=== PATIENT | female | born 1970 | race Two or more races ===

== ENCOUNTER → 2016-07-15 | Outpatient (CLI) | payer OTHER ==
[2016-07-15 08:41] LABS: ABSOLUTE EOSINOPHILS # (AUTO) 0.2 10^3/uL (0.0-0.6); ABSOLUTE LYMPHOCYTES (AUTO) 2.7 10^3/uL (0.5-4.7); ABSOLUTE MONOCYTES (AUTO) 0.7 10^3/uL (0.1-1.4); ABSOLUTE NEUT (AUTO) 4.8 10^3/uL (1.7-8.2); BASOPHILS % (AUTO) 0.4 % (0-2); EOSINOPHILS % (AUTO) 2.8 % (0-6); HEMATOCRIT 35.2 % (36.0-47.0); HEMOGLOBIN 11.1 g/dL (12.0-15.5); HGB HCT DIFFERENCE -1.9; LYMPHOCYTES % (AUTO) 31.8 % (13-45); MEAN CORPUSCULAR HEMOGLOBIN 23.4 pg (27.0-33.4); MEAN CORPUSCULAR HGB CONC 31.4 g/dL (32.0-36.0); MEAN CORPUSCULAR VOLUME 75 fl (80-97); MONOCYTES % (AUTO) 8.7 % (3-13); RED BLOOD COUNT 4.73 10^6/uL (3.72-5.28); RED CELL DISTRIBUTION WIDTH 16.9 % (11.5-14.0); SEGMENTED NEUTROPHILS % (AUTO) 56.3 % (42-78); WHITE BLOOD COUNT 8.6 10^3/uL (4.0-10.5)
== END ==
LOC: CCC 07:19
DX: E03.9 Hypothyroidism, unspecified (principal); R19.00 Intra-abdominal and pelvic swelling, mass and lump, unspecified site
CPT/HCPCS: 36415; 84443; 85025

== ENCOUNTER → 2016-08-15 | Outpatient (CLI) | payer OTHER ==
[2016-08-15 09:05] LABS: FERRITIN 7.14 ng/mL (6.2-137.0)
== END ==
LOC: OD 07:09
DX: E03.9 Hypothyroidism, unspecified (principal)
CPT/HCPCS: 36415; 82728; 83540; 83550; 84443

== ENCOUNTER → 2016-11-01 | Outpatient (CLI) | payer OTHER | LOC: OD 08:42 | DX: E03.9 Hypothyroidism, unspecified (principal) | CPT/HCPCS: 36415; 84443 ==

== ENCOUNTER → 2016-11-19 | Outpatient (CLI) | payer SELFPAY ==
--- NOTE | 2016-11-26 15:21 | RADIOLOGY REPORT (SQ) ---
EXAM DESCRIPTION: UPPER GI/SM BOWEL COMPLETED DATE/TIME: 11/19/2016 11:27 am REASON FOR STUDY: ANEMIA D64.9 ANEMIA, UNSPECIFIED COMPARISON: None. TECHNIQUE: Under fluoroscopic guidance, patient ingested effervescent granules followed by thick an d thin barium. Fluoroscopic spot images and routine radiographic images acquired and stored on PACS . Following evaluation of esophagus and stomach, additional barium administered with serial delayed ab dominal radiographs until colonic identification. Fluoroscopic images recorded of the terminal ileu m. 12 MM BARIUM TABLET GIVEN: The patient swallowed a 12 mm barium tablet which passed easily through th e esophagus and into the stomach without delay. FLUOROSCOPY TIME: Fluoro time 2.2 minutes 13 images saved to PACS. LIMITATIONS: None. FINDINGS: NEUROMUSCULAR COORDINATION OF SWALLOW: Normal. No aspiration. ESOPHAGEAL MOTILITY: Normal peristalsis. No esophageal spasm. ESOPHAGEAL MUCOSA: Normal mucosa without masses or ulceration. GASTRO-ESOPHAGEAL JUNCTION: There is a tiny hiatal hernia present. No reflux noted. STOMACH: Normal without masses or ulcerations. GASTRIC OUTLET: No delay in emptying. Normal pylorus. DUODENAL BULB: Normal distention. No spasm or ulceration. DUODENUM: Mucosa normal. No extrinsic masses or malrotation. PROXIMAL SMALL BOWEL: Normal as visualized. JEJUNUM: Normal mucosal pattern. No dilatation, segmentation, strictures or masses. ILEUM: Normal mucosal pattern. No dilatation, segmentation, strictures or masses. TERMINAL ILEUM AND ILEO-CECAL VALVE: Normal mucosal pattern without cobble-stoning or stricture. Nor mal compression. PROXIMAL COLON: Incompletely imaged. No abnormality. NON-GI TRACT STRUCTURES: No significant finding. OTHER: Small bowel transit time 90 minutes. IMPRESSION: TINY HIATAL HERNIA. OTHERWISE UNREMARKABLE STUDY. COMMENT: NONE Quality ID [id number]: Final reports for procedures using fluoroscopy that document radiation exposure sarthak allysas, or exposure time and number of fluorographic images (if radiation exposure indices are not avail able) TECHNICAL DOCUMENTATION: JOB ID: [id number] [employer]- All Rights Reserved
== END ==
LOC: RAD 09:14
PROVIDERS: ATTEND Internal Medicine
DX: D50.9 Iron deficiency anemia, unspecified (principal)
CPT/HCPCS: 74249

== ENCOUNTER 2016-12-25 03:20 | Emergency (ER) | payer OTHER ==
--- NOTE | 2016-12-25 04:05 | ER Document Report ---
ED General - General Chief Complaint: Swelling Stated Complaint: BLOOD PRESSURE PROBLEMS Time Seen by Provider: 12/25/16 04:03 Mode of Arrival: Ambulatory Information source: Patient Notes: Pt presents to the ED with c/o fatigue, chills, swelling to her legs and face and unable to sleep. Pt does not speak afghan. Interpretation done by Judy NANCE and Laz NANCE. She reports occasional abdominal pain. She is waiting for the [facility] to set her up for a EGD. Denies f/v/d. Reports symptoms for a few months but unable to sleep tonight. TRAVEL OUTSIDE OF THE [place] IN LAST 30 DAYS: No - HPI Onset: Other - 2MONTHS Onset/Duration: Persistent Quality of pain: No pain Severity: None Associated symptoms: None Exacerbated by: Denies Relieved by: Denies Similar symptoms previously: Yes Recently seen / treated by doctor: No - Related Data Allergies/Adverse Reactions: No Known Allergies Allergy (Unverified 12/25/16 03:36) Past Medical History - General Information source: Patient Last Menstrual Period: 4 months ago - Social History Smoking Status: Unknown if Ever Smoked Cigarette use (# per day): No Frequency of alcohol use: None Drug Abuse: None Lives with: Family Family History: None Patient has suicidal ideation: No Patient has homicidal ideation: No - Medical History Medical History: Other - anemia - Past Medical History Cardiac Medical History: Reports: Hx Hypertension Endocrine Medical History: Reports: Hx Hypothyroidism Renal/ Medical History: Denies: Hx Peritoneal Dialysis Surgical Hx: Negative Review of Systems - Review of Systems Notes: Review HPI for review of systems., All other systems negative Physical Exam - Vital signs Vitals: Temp Pulse Resp BP Pulse Ox 97.9 F 78 18 151/77 H 99 12/25/16 03:32 12/25/16 03:32 12/25/16 03:32 12/25/16 03:32 12/25/16 03:32 - Notes Notes: PHYSICAL EXAMINATION: GENERAL: Well-appearing and in no acute distress HEAD: Atraumatic, normocephalic. EYES: Pupils equal round and reactive to light, extraocular movements intact, sclera anicteric, conjunctiva are normal. ENT: nares patent, oropharynx clear without exudates. Moist mucous membranes. NECK: Normal range of motion, supple without lymphadenopathy LUNGS: CTAB and equal. No wheezes rales or rhonchi. HEART: Regular rate and rhythm without murmurs ABDOMEN: Soft, no tenderness. No guarding, no rebound denies pain EXTREMITIES: Normal range of motion, no pitting edema. No cyanosis. NEUROLOGICAL: Cranial nerves grossly intact. Normal sensory/motor exams. PSYCH: Normal mood, normal affect. SKIN: Warm, Dry, normal turgor, no rashes or lesions noted Course - Re-evaluation Re-evalutation: 12/25/16 05:18 pt instructed we will obtain baseline labs to ensure she is safe. Pt is nontoxic looking. Vital signs of stable. 12/25/16 05:42 Labs Unremarkable and updated on all labs. Patient reports that she has an appointment with her primary care provider on Friday. She also has someone that can read afghan for her discharge instructions. Interpretation completed thru Laz NANCE. - Vital Signs Vital signs: Temp Pulse Resp BP Pulse Ox 97.9 F 78 18 151/77 H 99 12/25/16 03:32 12/25/16 03:32 12/25/16 03:32 12/25/16 03:32 12/25/16 03:32 - Laboratory Result Diagrams: 12/25/16 04:35 12/25/16 04:35 Laboratory results interpreted by me: 12/25/16 12/25/16 04:35 04:35 MCH 26.2 L RDW 18.6 H Potassium 3.4 L Glucose 146 H AST 46 H ALT 67 H Total Protein 8.3 H Discharge - Discharge Clinical Impression: Fatigue, Elevated blood pressure reading Condition: Stable Disposition: HOME, SELF-CARE Instructions: [facility], Fatigue ([facility]) Additional Instructions: *You have been evaluated for fatigue, swelling, joint pain *Follow up with a primary care provider or the [facility] within one week *Return to ED for worsening condition, changes, needs Monitor your blood pressure. Your blood pressure was elevated today. This may be because you were anxious, in pain or because you need medication. It is important to follow up with your primary care provider for full evaluation. Forms: Elevated Blood Pressure
[2016-12-25 04:55] LABS: ABSOLUTE BASOPHILS # (AUTO) 0.1 10^3/uL (0.0-0.2); ABSOLUTE EOSINOPHILS # (AUTO) 0.2 10^3/uL (0.0-0.6); ABSOLUTE MONOCYTES (AUTO) 0.6 10^3/uL (0.1-1.4); ABSOLUTE NEUT (AUTO) 5.3 10^3/uL (1.7-8.2); BASOPHILS % (AUTO) 0.6 % (0-2); EOSINOPHILS % (AUTO) 2.6 % (0-6); HEMATOCRIT 40.8 % (36.0-47.0); HEMOGLOBIN 13.4 g/dL (12.0-15.5); HGB HCT DIFFERENCE -0.6; LYMPHOCYTES % (AUTO) 32.6 % (13-45); MEAN CORPUSCULAR HEMOGLOBIN 26.2 pg (27.0-33.4); MEAN CORPUSCULAR HGB CONC 32.9 g/dL (32.0-36.0); MEAN CORPUSCULAR VOLUME 80 fl (80-97); MONOCYTES % (AUTO) 6.3 % (3-13); RED BLOOD COUNT 5.13 10^6/uL (3.72-5.28); RED CELL DISTRIBUTION WIDTH 18.6 % (11.5-14.0); SEGMENTED NEUTROPHILS % (AUTO) 57.9 % (42-78); WHITE BLOOD COUNT 9.2 10^3/uL (4.0-10.5)
[2016-12-25 05:04] LABS: APPEARANCE,URINE CLEAR; BILIRUBIN,URINE NEGATIVE (NEGATIVE); GLUCOSE, URINE NEGATIVE (NEGATIVE); KETONES,URINE NEGATIVE (NEGATIVE); LEUKOCYTE ESTERASE,URINE NEGATIVE (NEGATIVE); NITRITE,URINE NEGATIVE (NEGATIVE); PROTEIN,URINE NEGATIVE (NEGATIVE); URINE SPECIFIC GRAVITY 1.011; UROBILINOGEN,URINE NEGATIVE mg/dL (<2.0)
[2016-12-25 05:16] LABS: ALANINE AMINOTRANSFERASE 67 U/L (9-52); ALBUMIN 4.3 g/dL (3.5-5.0); ALKALINE PHOSPHATASE 94 U/L (38-126); ANION GAP 14 (5-19); ASPARTATE AMINO TRANSFERASE 46 U/L (14-36); BILIRUBIN,DIRECT 0.4 mg/dL (0.0-0.4); BILIRUBIN,TOTAL 0.5 mg/dL (0.2-1.3); BLOOD UREA NITROGEN 14 mg/dL (7-20); CALCIUM 9.9 mg/dL (8.4-10.2); CARBON DIOXIDE 28 mmol/L (22-30); CHLORIDE 100 mmol/L (98-107); CREATININE RESULT 0.57 mg/dL (0.52-1.25); GLUCOSE 146 mg/dL (75-110); LIPASE 102.7 U/L (23-300); POTASSIUM 3.4 mmol/L (3.6-5.0); SODIUM 142.4 mmol/L (137-145); TOTAL PROTEIN 8.3 g/dL (6.3-8.2)
[2016-12-25 06:02] VITALS: BP 148/80
== END 2016-12-25 06:02 | disposition home or self-care (01) ==
LOC: ER 03:20
DX: R53.83 Other fatigue (principal); R03.0 Elevated blood-pressure reading, without diagnosis of hypertension; M79.89 Other specified soft tissue disorders; R10.9 Unspecified abdominal pain
CPT/HCPCS: 36415; 80053; 81001; 83690; 84703; 85025; 99283

== ENCOUNTER → 2017-01-01 | Outpatient (CLI) | payer OTHER | LOC: CCC 09:03 | DX: E03.9 Hypothyroidism, unspecified (principal) | CPT/HCPCS: 36415; 84443 ==

== ENCOUNTER → 2017-01-24 | Outpatient (CLI) | payer OTHER ==
--- NOTE | 2017-01-24 11:31 | RADIOLOGY REPORT (SQ) ---
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 NUMBER OF VIEWS: One view. TECHNIQUE: Supine radiographic image of the abdomen acquired. LIMITATIONS: None. FINDINGS: BOWEL GAS PATTERN: Normal bowel gas pattern. No dilated loops. CALCIFICATIONS: No suspicious calcifications. SOFT TISSUES: No gross mass or suggestion of organomegaly. HARDWARE: None in the abdomen. BONES: No acute fracture. No worrisome bone lesions. OTHER: No other significant finding. IMPRESSION: NO RADIOGRAPHIC EVIDENCE FOR ACUTE ABDOMINAL DISEASE. TECHNICAL DOCUMENTATION: JOB ID: [id number] [employer]- All Rights Reserved
== END ==
LOC: RAD 08:34
DX: D50.8 Other iron deficiency anemias (principal)
CPT/HCPCS: 74000

== ENCOUNTER 2017-03-28 10:40 | Emergency (ER) | payer OTHER ==
[2017-03-28] MEDS ORDERED: ASPIRIN 81 MG TABLET, CHEWABLE PO ONE (11:34)
[2017-03-28] MEDS ORDERED: NORMAL SALINE 1000 ML 1,000 ML IV ONE (11:34)
[2017-03-28 12:13] LABS: ABSOLUTE LYMPHOCYTES (AUTO) 2.1 10^3/uL (0.5-4.7); ABSOLUTE MONOCYTES (AUTO) 0.5 10^3/uL (0.1-1.4); ABSOLUTE NEUT (AUTO) 9.1 10^3/uL (1.7-8.2); BASOPHILS % (AUTO) 0.4 % (0-2); EOSINOPHILS % (AUTO) 0.4 % (0-6); HEMATOCRIT 41.3 % (36.0-47.0); HEMOGLOBIN 14.4 g/dL (12.0-15.5); HGB HCT DIFFERENCE 1.9; MEAN CORPUSCULAR HEMOGLOBIN 28.6 pg (27.0-33.4); MEAN CORPUSCULAR HGB CONC 34.8 g/dL (32.0-36.0); MEAN CORPUSCULAR VOLUME 82 fl (80-97); MONOCYTES % (AUTO) 4.3 % (3-13); RED BLOOD COUNT 5.03 10^6/uL (3.72-5.28); RED CELL DISTRIBUTION WIDTH 13.2 % (11.5-14.0); SEGMENTED NEUTROPHILS % (AUTO) 76.9 % (42-78); WHITE BLOOD COUNT 11.8 10^3/uL (4.0-10.5)
--- NOTE | 2017-03-28 12:13 | RADIOLOGY REPORT (SQ) ---
EXAM DESCRIPTION: CHEST SINGLE VIEW COMPLETED DATE/TIME: 03/28/2017 12:02 pm REASON FOR STUDY: SOB COMPARISON: None. EXAM PARAMETERS: NUMBER OF VIEWS: One view. TECHNIQUE: Single frontal radiographic view of the chest acquired. RADIATION DOSE: NA LIMITATIONS: None. FINDINGS: LUNGS AND PLEURA: No opacities, masses or pneumothorax. No pleural effusion. MEDIASTINUM AND HILAR STRUCTURES: No masses. Contour normal. HEART AND VASCULAR STRUCTURES: Heart normal in size. Normal vasculature. BONES: No acute findings. HARDWARE: None in the chest. OTHER: No other significant finding. IMPRESSION: NO ACUTE RADIOGRAPHIC FINDING IN THE CHEST. TECHNICAL DOCUMENTATION: JOB ID: [id number]
--- NOTE | 2017-03-28 12:15 | ER Document Report ---
ED Dizziness/Weakness - General Chief Complaint: Dizziness Stated Complaint: DIZZY/VOMITING Time Seen by Provider: 03/28/17 11:28 Mode of Arrival: Ambulatory Information source: Patient Notes: Blanca used for the history and PExam. 46 yo chilean speaking female with her daughter walked into the ER because of vertigo x 5 this am when moves to supine , when sitting only dizzy, and vomited 2 times. Started 0500 this morning when returning to bed after urination. No hx of this. Also c/o heaviness in posterior occipital head since being in the ER. No diarrhea. No fever. No chest pain, abdominal pain, sore throat, no shortness of breath. No recent URI. No tinnitus. Feels tired. PMH:HTN, hypothyroid. PSH: c section, hernia repair. PCP: [facility]. TRAVEL OUTSIDE OF THE [place] IN LAST 30 DAYS: No - Related Data Allergies/Adverse Reactions: No Known Allergies Allergy (Unverified 12/25/16 03:36) Past Medical History - General Information source: Patient - Social History Smoking Status: Never Smoker Chew tobacco use (# tins/day): No Frequency of alcohol use: None Drug Abuse: None Lives with: Family Family History: None Patient has suicidal ideation: No Patient has homicidal ideation: No - Past Medical History Cardiac Medical History: Reports: Hx Hypertension Endocrine Medical History: Reports: Hx Hypothyroidism Renal/ Medical History: Denies: Hx Peritoneal Dialysis Past Surgical History: Reports: Hx Section, Other - hernia repair Review of Systems - Review of Systems Constitutional: No symptoms reported EENT: No symptoms reported Cardiovascular: No symptoms reported Respiratory: No symptoms reported Gastrointestinal: No symptoms reported Genitourinary: No symptoms reported Female Genitourinary: No symptoms reported Musculoskeletal: No symptoms reported Skin: No symptoms reported Hematologic/Lymphatic: No symptoms reported Neurological/Psychological: See HPI Physical Exam - Vital signs Vitals: Temp Pulse Resp BP Pulse Ox 97.9 F 84 16 138/83 H 99 03/28/17 11:00 03/28/17 11:00 03/28/17 11:00 03/28/17 11:00 03/28/17 11:00 Interpretation: Normal - General General appearance: Appears well, Alert In distress: None - HEENT Head: Normocephalic, Atraumatic Eyes: Normal Conjunctiva: Normal Extraocular movements intact: Yes Pupils: PERRL Nerve palsy: No Ears: Normal Tympanic membrane: Normal Sinus: Normal Pharynx: Normal Neck: Supple. No: Lymphadenopathy - Respiratory Respiratory status: No respiratory distress Chest status: Nontender Breath sounds: Normal Chest palpation: Normal - Cardiovascular Rhythm: Regular Heart sounds: Normal auscultation Murmur: No - Abdominal Inspection: Normal Distension: No distension Bowel sounds: Normal Tenderness: Nontender Organomegaly: No organomegaly - Back Back: Normal, Nontender - Extremities General upper extremity: Normal inspection, Nontender, Normal color, Normal ROM , Normal temperature General lower extremity: Normal inspection, Nontender, Normal color, Normal ROM , Normal temperature, Normal weight bearing. No: Jose A's sign - Neurological Neuro grossly intact: Yes Cognition: Normal Orientation: AAOx4 Prachi Coma Scale Eye Opening: Spontaneous Halbur Coma Scale Verbal: Oriented Prachi Coma Scale Motor: Obeys Commands Prachi Coma Scale Total: 15 Speech: Normal Motor strength normal: LUE, RUE, LLE, RLE Sensory: Normal - Psychological Associated symptoms: Normal affect, Normal mood - Skin Skin Temperature: Warm Skin Moisture: Dry Skin Color: Normal Skin irregularity: negative: Rash Course - Re-evaluation Re-evalutation: 03/28/17 13:[address] dia, [facility] pending will have pt call me back for that. rx for meclizine. labs ok except for hypokalemia,, elg nsr, chest xray is negative. 03/28/17 14:08 Patient feels better she drank very potassium, got 1 L of normal saline, meclizine 50 mg p.o. I used Memo again to talk with her about the discharge. Ambulated in the room and to bathroom with no ataxia or vertigo 03/28/17 23:06 - Vital Signs Vital signs: Temp Pulse Resp BP Pulse Ox 98.2 F 88 20 141/85 H 100 03/28/17 14:46 03/28/17 14:46 03/28/17 14:46 03/28/17 14:46 03/28/17 14:46 - Laboratory Result Diagrams: 03/28/17 11:52 03/28/17 11:52 Laboratory results interpreted by me: 03/28/17 03/28/17 11:52 11:52 WBC 11.8 H Absolute Neutrophils 9.1 H Potassium 3.2 L Glucose 134 H Calcium 10.5 H ALT 58 H Total Protein 8.4 H Discharge - Discharge Clinical Impression: elevated glucose, vertigo, Hypokalemia Condition: Good Disposition: HOME, SELF-CARE Instructions: Antinausea Medication ([facility]), Dizziness ([facility]), Meclizine ([facility]), Vertigo ([facility]) Additional Instructions: return to er if worse drink plenty of water I added 2 lab tests that are not back yet: CALL ME [phone] FOR THE LAB RESULTS THAT ARE STILL PENDING IN 2 HOURS take the meclizine for the spinning/vertigo eat a bannana daily if this persists see the neurologist Please complete the patient satisfaction survey if you get one, and return it.. If you do not receive a survey, then you can go to the [facility] website, [email or web address] and place your comments about your very good care. Thank you very much. It was a pleasure being your medical provider today. Prescriptions: Meclizine HCl 25 mg PO QIDP PRN #30 tablet PRN Reason: Referrals: JAMAR PETERS MD [ACTIVE STAFF] - Follow up as needed
[2017-03-28 12:20] LABS: PROTHROMBIN TIME 13.1 SEC (11.4-15.4)
[2017-03-28 12:23] LABS: ALANINE AMINOTRANSFERASE 58 U/L (9-52); ALBUMIN 4.5 g/dL (3.5-5.0); ALKALINE PHOSPHATASE 104 U/L (38-126); ANION GAP 14 (5-19); ASPARTATE AMINO TRANSFERASE 33 U/L (14-36); BILIRUBIN,DIRECT 0.4 mg/dL (0.0-0.4); BILIRUBIN,TOTAL 0.6 mg/dL (0.2-1.3); BLOOD UREA NITROGEN 13 mg/dL (7-20); CALCIUM 10.5 mg/dL (8.4-10.2); CARBON DIOXIDE 27 mmol/L (22-30); CHLORIDE 100 mmol/L (98-107); CREATINE KINASE 102 U/L (30-135); CREATININE RESULT 0.57 mg/dL (0.52-1.25); GLUCOSE 134 mg/dL (75-110); POTASSIUM 3.2 mmol/L (3.6-5.0); SODIUM 140.7 mmol/L (137-145); TOTAL PROTEIN 8.4 g/dL (6.3-8.2)
[2017-03-28 12:33] LABS: CREATINE KINASE MB 0.76 ng/mL (<4.55)
[2017-03-28 12:39] LABS: FREE T3 4.52 pg/mL (2.77-5.27)
[2017-03-28 12:41] LABS: TROPONIN I < 0.012 ng/mL
[2017-03-28 12:53] LABS: THYROID STIMULATING HORMONE 0.54 uIU/mL (0.47-4.68)
[2017-03-28] MEDS ORDERED: MECLIZINE HCL 25 MG TABLET PO ONE (13:13)
[2017-03-28] MEDS ORDERED: POTASSIUM CHLORIDE 20 MEQ/15 ML UDCUP PO ONE (13:15)
--- NOTE | 2017-03-28 14:11 | ER Document Report ---
ED Medical Screen (RME) - General Chief Complaint: Dizziness Stated Complaint: DIZZY/VOMITING Time Seen by Provider: 03/28/17 11:28 Mode of Arrival: Ambulatory Information source: Relative - Daughter is translating. Notes: 46-year-old female who woke up this morning feeling dizzy, it worsens when she stands up and is not associated with any chest pain or shortness of breath. TRAVEL OUTSIDE OF THE [place] IN LAST 30 DAYS: No - Related Data Allergies/Adverse Reactions: No Known Allergies Allergy (Unverified 12/25/16 03:36) Past Medical History - General Information source: Patient, Relative - Daughter is interpreting. - Social History Cigarette use (# per day): No Chew tobacco use (# tins/day): No Frequency of alcohol use: None Drug Abuse: None - Past Medical History Cardiac Medical History: Reports: Hx Hypertension Endocrine Medical History: Reports: Hx Hypothyroidism Renal/ Medical History: Denies: Hx Peritoneal Dialysis Review of Systems - Review of Systems Cardiovascular: Dizziness Physical Exam - Vital signs Vitals: Temp Pulse Resp BP Pulse Ox 97.9 F 84 16 138/83 H 99 03/28/17 11:00 03/28/17 11:00 03/28/17 11:00 03/28/17 11:00 03/28/17 11:00 Interpretation: Hypertensive - Respiratory Respiratory status: No respiratory distress Chest status: Nontender Breath sounds: Normal Chest palpation: Normal - Cardiovascular Rhythm: Regular Heart sounds: Normal auscultation Murmur: No Course - Vital Signs Vital signs: Temp Pulse Resp BP Pulse Ox 97.9 F 84 16 138/83 H 97 03/28/17 11:00 03/28/17 11:00 03/28/17 11:00 03/28/17 11:00 03/28/17 11:55 - Laboratory Result Diagrams: 03/28/17 11:52 03/28/17 11:52 Laboratory results interpreted by me: 03/28/17 03/28/17 11:52 11:52 WBC 11.8 H Absolute Neutrophils 9.1 H Potassium 3.2 L Glucose 134 H Calcium 10.5 H ALT 58 H Total Protein 8.4 H Doctor's Discharge - Discharge Clinical Impression: elevated glucose, vertigo, Hypokalemia Condition: Good Disposition: HOME, SELF-CARE Instructions: Antinausea Medication ([facility]), Dizziness ([facility]), Meclizine ([facility]), Vertigo ([facility]) Additional Instructions: return to er if worse drink plenty of water I added 2 lab tests that are not back yet: CALL ME [phone] FOR THE LAB RESULTS THAT ARE STILL PENDING IN 2 HOURS take the meclizine for the spinning/vertigo eat a bannana daily if this persists see the neurologist Please complete the patient satisfaction survey if you get one, and return it.. If you do not receive a survey, then you can go to the [facility] website, [email or web address] and place your comments about your very good care. Thank you very much. It was a pleasure being your medical provider today. Prescriptions: Meclizine HCl 25 mg PO QIDP PRN #30 tablet PRN Reason: Referrals: JAMAR PETERS MD [ACTIVE STAFF] - Follow up as needed
[2017-03-28 14:50] VITALS: BP 141/85
--- NOTE | 2017-03-28 22:54 | EKG REPORT ---
SEVERITY:- BORDERLINE ECG - SINUS RHYTHM BORDERLINE T ABNORMALITIES, INFERIOR LEADS : Confirmed by: Lisa Kruger 28-Mar-2017 22:54:21
== END 2017-03-28 15:13 | disposition home or self-care (01) ==
LOC: ER 10:40
DX: R42 Dizziness and giddiness (principal); E87.6 Hypokalemia; I10 Essential (primary) hypertension; R73.09 Other abnormal glucose
CPT/HCPCS: 93005; 99284; 36415; 84439; 82553; 82550; 84443; 84703; 85025; 85610; 80053; 84484; 84481; 83036; 71010; 93010; J7030

== ENCOUNTER 2017-04-01 20:29 | Emergency (ER) | payer OTHER ==
[2017-04-02] MEDS ORDERED: METOCLOPRAMIDE HCL INJ/PF 10 MG/2 ML SDV IV ONE (00:24)
[2017-04-02] MEDS ORDERED: DIPHENHYDRAMINE HCL 50 MG/ML VIAL IV ONE (00:25)
--- NOTE | 2017-04-02 00:26 | ER Document Report ---
ED General - General Chief Complaint: Dizziness Stated Complaint: DIZZINESS Time Seen by Provider: 04/02/17 00:08 Mode of Arrival: Ambulatory Information source: Patient Notes: This is a 46-year-old female with a history of hypertension and hypothyroidism that has been having vertigo for the past 2 weeks. She was placed on meclizine with little relief. He she states that the vertigo is clearly worsened with head movements and lying flat. She denies any chest pain or shortness of breath. TRAVEL OUTSIDE OF THE [place] IN LAST 30 DAYS: No - HPI Onset: Last week Onset/Duration: Gradual Quality of pain: No pain Severity: None Pain Level: Denies Associated symptoms: denies: Chest pain, Fever, Shortness of breath Exacerbated by: Denies Relieved by: Denies Similar symptoms previously: Yes Recently seen / treated by doctor: Yes - Related Data Allergies/Adverse Reactions: No Known Allergies Allergy (Unverified 12/25/16 03:36) Home Medications: Current Home Medications Levothyroxine Sodium [Synthroid] 75 mcg PO DAILY 04/02/17 [History] Past Medical History - General Information source: Patient - Social History Smoking Status: Never Smoker Cigarette use (# per day): No Chew tobacco use (# tins/day): No Frequency of alcohol use: None Drug Abuse: None Lives with: Family Family History: None Patient has suicidal ideation: No Patient has homicidal ideation: No - Past Medical History Cardiac Medical History: Reports: Hx Hypertension Endocrine Medical History: Reports: Hx Hypothyroidism Renal/ Medical History: Denies: Hx Peritoneal Dialysis Past Surgical History: Reports: Hx Section, Other - hernia repair Review of Systems - Review of Systems Constitutional: denies: Chills, Fever EENT: No symptoms reported Cardiovascular: No symptoms reported Respiratory: No symptoms reported Gastrointestinal: No symptoms reported Genitourinary: No symptoms reported Female Genitourinary: No symptoms reported Musculoskeletal: No symptoms reported Skin: No symptoms reported Hematologic/Lymphatic: No symptoms reported Neurological/Psychological: See HPI Physical Exam - Vital signs Vitals: Temp Pulse Resp BP Pulse Ox 98.4 F 97 18 150/87 H 99 04/01/17 20:39 04/01/17 20:39 04/01/17 20:39 04/01/17 20:39 04/01/17 20:39 Notes: Physical exam: GENERAL: 46-year-old female, alert and oriented 3, no acute distress HEAD: Atraumatic, normocephalic. EYES: Pupils equal round and reactive to light, extraocular movements intact, sclera anicteric, conjunctiva are normal. ENT: TMs normal, nares patent, oropharynx clear without exudates. Moist mucous membranes. NECK: Normal range of motion, supple without obvious mass or JVD. LUNGS: Breath sounds clear to auscultation bilaterally and equal. No wheezes rales or rhonchi. HEART: Regular rate and rhythm without murmurs, rubs or gallops. ABDOMEN: Soft, normoactive bowel sounds. No tenderness to palpation. No guarding, no rebound. No masses appreciated. EXTREMITIES: Normal range of motion, no pitting or edema. No clubbing or cyanosis. NEUROLOGICAL: Cranial nerves II through XII grossly intact. Normal speech, moving all extremities, cerebellar (finger to nose) is good, reflexes are brisk. PSYCH: Normal mood, normal affect. SKIN: Warm, Dry, normal turgor, no rashes or lesions noted. Course - Re-evaluation Re-evalutation: 04/02/17 03:46 Note, I did try to perform some positional maneuvers while she was in the bed. She was given Reglan and Benadryl for nausea. Head CT looked relatively well. I did discuss with the patient and her family maneuvers to do (I gave them a diagram illustrating the maneuvers). Patient stated that the meclizine was not working, so I did prescribe her some Valium (low-dose). I did give them the number of the ENT clinic to follow-up for the vertigo. I did tell them that if the vertigo worsens that she should return to the daytime and that may be an MRI of the brain would be in order. - Vital Signs Vital signs: Temp Pulse Resp BP Pulse Ox 98.4 F 97 14 119/74 100 04/01/17 20:39 04/01/17 20:39 04/02/17 03:01 04/02/17 03:01 04/02/17 03:01 - Laboratory Result Diagrams: 04/01/17 23:57 04/01/17 23:57 Laboratory results interpreted by me: 04/01/17 04/01/17 04/02/17 23:57 23:57 02:35 WBC 11.6 H Chloride 97 L Glucose 121 H Calcium 10.8 H AST 39 H ALT 66 H Total Protein 8.5 H Urine Blood SMALL H - Diagnostic Test Radiology reviewed: Image reviewed, Reports reviewed - CT of the head shows no acute insult. - EKG Interpretation by Me Rate: Normal Rhythm: NSR - EKG shows normal sinus rhythm with a ventricular rate of 95, no acute ST-T wave changes Discharge - Discharge Clinical Impression: Vertigo Condition: Stable Disposition: HOME, SELF-CARE Instructions: Vertigo ([facility]) Additional Instructions: The head CT look good tonight. I would like you to do the positional maneuvers once or twice a day. These maneuvers are called BPPV positional maneuvers (benign positional vertigo maneuvers) and you can read more about them on the internet. I have prescribed valium as well- take only when needed. If you vertigo is returning worse, return to the emergency room during the day ( you may require an MRI of the brain). There are some clinics that specialize in vertigo, I have provided the Follow- up with an ENT Doctor: [facility] [address] [place] [address] Toll Free: Prescriptions: Diazepam [Valium 5 mg Tablet] 5 mg PO QIDP PRN #15 tablet PRN Reason:
[2017-04-02] MEDS ORDERED: NORMAL SALINE 500 ML IV PRN (00:27)
[2017-04-02 00:34] LABS: ABSOLUTE EOSINOPHILS # (AUTO) 0.1 10^3/uL (0.0-0.6); ABSOLUTE LYMPHOCYTES (AUTO) 3.1 10^3/uL (0.5-4.7); ABSOLUTE MONOCYTES (AUTO) 0.7 10^3/uL (0.1-1.4); ABSOLUTE NEUT (AUTO) 7.7 10^3/uL (1.7-8.2); BASOPHILS % (AUTO) 0.4 % (0-2); EOSINOPHILS % (AUTO) 1.1 % (0-6); HEMATOCRIT 41.4 % (36.0-47.0); HEMOGLOBIN 14.5 g/dL (12.0-15.5); HGB HCT DIFFERENCE 2.1; LYMPHOCYTES % (AUTO) 26.6 % (13-45); MEAN CORPUSCULAR HEMOGLOBIN 28.7 pg (27.0-33.4); MEAN CORPUSCULAR VOLUME 82 fl (80-97); MONOCYTES % (AUTO) 5.6 % (3-13); RED BLOOD COUNT 5.03 10^6/uL (3.72-5.28); RED CELL DISTRIBUTION WIDTH 13.6 % (11.5-14.0); SEGMENTED NEUTROPHILS % (AUTO) 66.3 % (42-78); WHITE BLOOD COUNT 11.6 10^3/uL (4.0-10.5)
[2017-04-02 00:52] LABS: ALANINE AMINOTRANSFERASE 66 U/L (9-52); ALBUMIN 4.6 g/dL (3.5-5.0); ALKALINE PHOSPHATASE 93 U/L (38-126); ANION GAP 13 (5-19); ASPARTATE AMINO TRANSFERASE 39 U/L (14-36); BILIRUBIN,DIRECT 0.4 mg/dL (0.0-0.4); BILIRUBIN,TOTAL 0.6 mg/dL (0.2-1.3); BLOOD UREA NITROGEN 11 mg/dL (7-20); CALCIUM 10.8 mg/dL (8.4-10.2); CARBON DIOXIDE 30 mmol/L (22-30); CHLORIDE 97 mmol/L (98-107); CREATININE RESULT 0.61 mg/dL (0.52-1.25); GLUCOSE 121 mg/dL (75-110); POTASSIUM 3.9 mmol/L (3.6-5.0); SODIUM 140.3 mmol/L (137-145); TOTAL PROTEIN 8.5 g/dL (6.3-8.2)
--- NOTE | 2017-04-02 02:35 | RADIOLOGY REPORT (SQ) ---
EXAM: NONCONTRAST BRAIN CT EXAMINATION. CLINICAL INDICATION: Acute vertigo. COMPARISON: None. TECHNIQUE: Using low dose helical CT technique, thin section axial images were performed through the brain without the administration of intravenous or subarachnoid contrast material. FINDINGS: Brain volume is normal. No diffuse brain swelling or brain herniation. No hydrocephalus. No subdural or epidural hematomas. No large subacute brain infarction. No parenchymal brain hemorrhage or evidence of intracranial mass lesion. Cerebral white matter is normal. Caudate heads, lentiform nuclei, thalami and internal capsules are normal. Bones of the skull and skull base are normal. The middle ears and mastoid air cells are clear. Paranasal sinuses are clear. Globes and orbits are grossly normal. IMPRESSION: 1. Normal noncontrast brain CT examination.
[2017-04-02 02:58] LABS: APPEARANCE,URINE CLEAR; BILIRUBIN,URINE NEGATIVE (NEGATIVE); GLUCOSE, URINE NEGATIVE (NEGATIVE); KETONES,URINE NEGATIVE (NEGATIVE); LEUKOCYTE ESTERASE,URINE NEGATIVE (NEGATIVE); NITRITE,URINE NEGATIVE (NEGATIVE); PROTEIN,URINE NEGATIVE (NEGATIVE); URINE SPECIFIC GRAVITY 1.008; UROBILINOGEN,URINE NEGATIVE mg/dL (<2.0)
[2017-04-02 03:27] VITALS: BP 119/74
--- NOTE | 2017-04-02 08:55 | EKG REPORT ---
SEVERITY:- NORMAL ECG - SINUS RHYTHM : Confirmed by: Karla Falcon MD 02-Apr-2017 08:54:54
== END 2017-04-02 03:26 | disposition home or self-care (01) ==
LOC: ER 20:29
DX: R42 Dizziness and giddiness (principal); I10 Essential (primary) hypertension
CPT/HCPCS: 93005; 99284; 96374; 96375; 36415; 85025; 80053; 81001; 84484; 70450; 93010; J1200; J2765; J7040

== ENCOUNTER → 2017-05-28 | Outpatient (CLI) | payer OTHER | LOC: CCC 09:00 | DX: E03.8 Other specified hypothyroidism (principal); E66.8 Other obesity | CPT/HCPCS: 36415; 83036; 84443 ==

== ENCOUNTER → 2017-07-15 | Outpatient (CLI) | payer OTHER ==
[2017-07-15 09:27] LABS: ALANINE AMINOTRANSFERASE 67 U/L (9-52); ALBUMIN 4.3 g/dL (3.5-5.0); ALKALINE PHOSPHATASE 83 U/L (38-126); ANION GAP 13 (5-19); ASPARTATE AMINO TRANSFERASE 37 U/L (14-36); BILIRUBIN,DIRECT 0.3 mg/dL (0.0-0.4); BILIRUBIN,TOTAL 0.5 mg/dL (0.2-1.3); BLOOD UREA NITROGEN 13 mg/dL (7-20); CALCIUM 10.1 mg/dL (8.4-10.2); CARBON DIOXIDE 28 mmol/L (22-30); CHLORIDE 101 mmol/L (98-107); GLUCOSE 101 mg/dL (75-110); POTASSIUM 3.9 mmol/L (3.6-5.0); SODIUM 142.4 mmol/L (137-145); TOTAL PROTEIN 7.5 g/dL (6.3-8.2)
== END ==
LOC: CCC 08:23
DX: E03.9 Hypothyroidism, unspecified (principal)
CPT/HCPCS: 36415; 80053; 83036; 84443

== ENCOUNTER 2017-07-30 04:46 | Emergency (ER) | payer OTHER ==
[2017-07-30] MEDS ORDERED: DIAZEPAM 5 MG TABLET PO ONE (06:45)
[2017-07-30 06:57] LABS: ABSOLUTE EOSINOPHILS # (AUTO) 0.2 10^3/uL (0.0-0.6); ABSOLUTE LYMPHOCYTES (AUTO) 3.5 10^3/uL (0.5-4.7); ABSOLUTE MONOCYTES (AUTO) 0.7 10^3/uL (0.1-1.4); ABSOLUTE NEUT (AUTO) 5.8 10^3/uL (1.7-8.2); BASOPHILS % (AUTO) 0.4 % (0-2); EOSINOPHILS % (AUTO) 1.8 % (0-6); HEMATOCRIT 40.3 % (36.0-47.0); HEMOGLOBIN 13.8 g/dL (12.0-15.5); MEAN CORPUSCULAR HEMOGLOBIN 28.2 pg (27.0-33.4); MEAN CORPUSCULAR HGB CONC 34.2 g/dL (32.0-36.0); MEAN CORPUSCULAR VOLUME 83 fl (80-97); MONOCYTES % (AUTO) 6.9 % (3-13); PLATELET COUNT 219 10^3/uL (150-450); RED BLOOD COUNT 4.88 10^6/uL (3.72-5.28); RED CELL DISTRIBUTION WIDTH 14.2 % (11.5-14.0); SEGMENTED NEUTROPHILS % (AUTO) 56.9 % (42-78); TOTAL CELLS COUNTED % (AUTO) 100 %; WHITE BLOOD COUNT 10.2 10^3/uL (4.0-10.5)
[2017-07-30 07:06] LABS: ALANINE AMINOTRANSFERASE 70 U/L (9-52); ALBUMIN 4.5 g/dL (3.5-5.0); ALKALINE PHOSPHATASE 93 U/L (38-126); ANION GAP 12 (5-19); ASPARTATE AMINO TRANSFERASE 36 U/L (14-36); BILIRUBIN,DIRECT 0.3 mg/dL (0.0-0.4); BILIRUBIN,TOTAL 0.4 mg/dL (0.2-1.3); BLOOD UREA NITROGEN 13 mg/dL (7-20); CALCIUM 10.3 mg/dL (8.4-10.2); CARBON DIOXIDE 27 mmol/L (22-30); CHLORIDE 101 mmol/L (98-107); GLUCOSE 125 mg/dL (75-110); POTASSIUM 4.2 mmol/L (3.6-5.0); SODIUM 139.7 mmol/L (137-145); TOTAL PROTEIN 8.2 g/dL (6.3-8.2)
--- NOTE | 2017-07-30 08:04 | EKG REPORT ---
SEVERITY:- NORMAL ECG - SINUS RHYTHM : Confirmed by: Lius Philip MD 30-Jul-2017 08:04:29
[2017-07-30 08:58] VITALS: BP 108/62
--- NOTE | 2017-07-30 09:01 | ER Document Report ---
ED General - General Chief Complaint: Dizziness Stated Complaint: DIZZINESS Time Seen by Provider: 07/30/17 06:13 TRAVEL OUTSIDE OF THE [place] IN LAST 30 DAYS: No - HPI Patient complains to provider of: Dizziness Notes: Patient is [place]-speaking mostly with family member translating at bedside patient coming in for evaluation of dizziness. Patient dizziness ongoing for a few weeks been seen in the past to follow-up with ENT. Patient states ENT checked her ears out however did not find any clear pathology. Patient states has performed an Mayelin maneuver at home and did take the prescribed Valium which did help however currently she is out of her Valium. Patient denies any fevers chills nausea vomiting diarrhea. Patient otherwise sitting currently upon my evaluation dizziness worse with moving around. - Related Data Allergies/Adverse Reactions: No Known Allergies Allergy (Verified 07/30/17 04:46) Past Medical History - Social History Smoking Status: Never Smoker Chew tobacco use (# tins/day): No Frequency of alcohol use: None Drug Abuse: None Family History: None Patient has suicidal ideation: No Patient has homicidal ideation: No - Past Medical History Cardiac Medical History: Reports: Hx Hypertension Endocrine Medical History: Reports: Hx Hypothyroidism Renal/ Medical History: Denies: Hx Peritoneal Dialysis Past Surgical History: Reports: Hx Section, Other - hernia repair Review of Systems - Review of Systems Constitutional: No symptoms reported EENT: No symptoms reported Cardiovascular: No symptoms reported Respiratory: No symptoms reported Gastrointestinal: No symptoms reported Genitourinary: No symptoms reported Female Genitourinary: No symptoms reported Musculoskeletal: No symptoms reported Skin: No symptoms reported Hematologic/Lymphatic: No symptoms reported Neurological/Psychological: Other - Dizziness -: Yes All other systems reviewed and negative Physical Exam - Vital signs Vitals: Temp Pulse Resp BP Pulse Ox 98.0 F 86 18 121/79 98 07/30/17 04:49 07/30/17 04:49 07/30/17 04:49 07/30/17 04:49 07/30/17 04:49 Interpretation: Normal - General General appearance: Appears well, Alert - HEENT Head: Normocephalic, Atraumatic Eyes: Normal Conjunctiva: Normal Cornea: Normal Eyelashes: Normal Pupils: PERRL - Respiratory Respiratory status: No respiratory distress Chest status: Nontender Breath sounds: Normal Chest palpation: Normal - Cardiovascular Rhythm: Regular Heart sounds: Normal auscultation Murmur: No - Abdominal Inspection: Normal Distension: No distension Bowel sounds: Normal Tenderness: Nontender Organomegaly: No organomegaly - Back Back: Normal, Nontender - Extremities General upper extremity: Normal inspection, Nontender, Normal color, Normal ROM , Normal temperature General lower extremity: Normal inspection, Nontender, Normal color, Normal ROM , Normal temperature, Normal weight bearing. No: Jose A's sign - Neurological Neuro grossly intact: Yes Cognition: Normal Orientation: AAOx4 Prachi Coma Scale Eye Opening: Spontaneous Holly Coma Scale Verbal: Oriented Prachi Coma Scale Motor: Obeys Commands Holly Coma Scale Total: 15 Speech: Normal Motor strength normal: LUE, RUE, LLE, RLE Sensory: Normal - Psychological Associated symptoms: Normal affect, Normal mood - Skin Skin Temperature: Warm Skin Moisture: Dry Skin Color: Normal Course - Re-evaluation Re-evalutation: 07/30/17 08:56 Upon reevaluation patient sitting up stating that her symptoms have resolved. Patient did receive a dose of Valium. Explained to the family member at bedside interpreting that the patient would probably benefit from now see neurology as he is already followed up with ENT. They stated understanding vital signs laboratory values and reevaluation do not reveal any critical pathology patient will be discharged home. - Vital Signs Vital signs: Temp Pulse Resp BP Pulse Ox 98.9 F 82 18 108/62 98 07/30/17 09:13 07/30/17 06:58 07/30/17 04:49 07/30/17 08:01 07/30/17 08:01 - Laboratory Result Diagrams: 07/30/17 06:27 07/30/17 06:27 Laboratory results interpreted by me: 07/30/17 07/30/17 06:27 06:27 RDW 14.2 H Glucose 125 H Calcium 10.3 H ALT 70 H Discharge - Discharge Clinical Impression: Dizziness Instructions: Dizziness ([facility]), Neurologist, Vertigo ([facility]) Additional Instructions: Please continue to use the Mayelin maneuver at home. Take medication as needed for dizziness. I will highly recommend following up with neurology. Return to the ER symptoms worsen. Prescriptions: Diazepam [Valium 5 mg Tablet] 5 mg PO QIDP PRN #20 tablet PRN Reason:
== END 2017-07-30 09:13 | disposition home or self-care (01) ==
LOC: ER 04:46
DX: R42 Dizziness and giddiness (principal); I10 Essential (primary) hypertension
CPT/HCPCS: 36415; 80053; 84703; 85025; 93005; 93010; 99284

== ENCOUNTER → 2018-01-15 | Outpatient (CLI) | payer OTHER ==
[2018-01-15 08:37] LABS: ABSOLUTE EOSINOPHILS # (AUTO) 0.2 10^3/uL (0.0-0.6); ABSOLUTE LYMPHOCYTES (AUTO) 3.2 10^3/uL (0.5-4.7); ABSOLUTE MONOCYTES (AUTO) 0.7 10^3/uL (0.1-1.4); ABSOLUTE NEUT (AUTO) 4.9 10^3/uL (1.7-8.2); BASOPHILS % (AUTO) 0.5 % (0-2); EOSINOPHILS % (AUTO) 1.8 % (0-6); HEMOGLOBIN 12.9 g/dL (12.0-15.5); LYMPHOCYTES % (AUTO) 35.6 % (13-45); MEAN CORPUSCULAR HEMOGLOBIN 28.5 pg (27.0-33.4); MEAN CORPUSCULAR HGB CONC 33.8 g/dL (32.0-36.0); MEAN CORPUSCULAR VOLUME 84 fl (80-97); MONOCYTES % (AUTO) 7.5 % (3-13); PLATELET COUNT 229 10^3/uL (150-450); RED CELL DISTRIBUTION WIDTH 12.9 % (11.5-14.0); SEGMENTED NEUTROPHILS % (AUTO) 54.6 % (42-78); TOTAL CELLS COUNTED % (AUTO) 100 %
[2018-01-15 08:52] LABS: ALANINE AMINOTRANSFERASE 44 U/L (9-52); ALKALINE PHOSPHATASE 87 U/L (38-126); ANION GAP 13 (5-19); ASPARTATE AMINO TRANSFERASE 28 U/L (14-36); BILIRUBIN,DIRECT 0.2 mg/dL (0.0-0.4); BILIRUBIN,TOTAL 0.4 mg/dL (0.2-1.3); BLOOD UREA NITROGEN 15 mg/dL (7-20); CALCIUM 9.6 mg/dL (8.4-10.2); CARBON DIOXIDE 26 mmol/L (22-30); CHLORIDE 106 mmol/L (98-107); CHOLESTEROL 163.71 mg/dL (0-200); GLUCOSE 101 mg/dL (75-110); POTASSIUM 4.2 mmol/L (3.6-5.0); SODIUM 144.8 mmol/L (137-145); TOTAL PROTEIN 7.6 g/dL (6.3-8.2); TRIGLYCERIDES 118 mg/dL (<150)
[2018-01-15 09:04] LABS: DIRECT LDL 91 mg/dL (<100)
== END ==
LOC: CCC 08:04
DX: Z00.00 Encounter for general adult medical examination without abnormal findings (principal)
CPT/HCPCS: 36415; 80053; 80061; 83036; 84443; 85025

== ENCOUNTER → 2018-06-16 | Outpatient (CLI) | payer OTHER ==
[2018-06-16 10:07] LABS: ABSOLUTE EOSINOPHILS # (AUTO) 0.2 10^3/uL (0.0-0.6); ABSOLUTE LYMPHOCYTES (AUTO) 2.6 10^3/uL (0.5-4.7); ABSOLUTE MONOCYTES (AUTO) 0.7 10^3/uL (0.1-1.4); ABSOLUTE NEUT (AUTO) 6.4 10^3/uL (1.7-8.2); BASOPHILS % (AUTO) 0.3 % (0-2); EOSINOPHILS % (AUTO) 1.8 % (0-6); HEMATOCRIT 38.6 % (36.0-47.0); HEMOGLOBIN 13.2 g/dL (12.0-15.5); LYMPHOCYTES % (AUTO) 26.4 % (13-45); MEAN CORPUSCULAR HEMOGLOBIN 28.7 pg (27.0-33.4); MEAN CORPUSCULAR HGB CONC 34.3 g/dL (32.0-36.0); MEAN CORPUSCULAR VOLUME 84 fl (80-97); MONOCYTES % (AUTO) 7.1 % (3-13); PLATELET COUNT 241 10^3/uL (150-450); RED BLOOD COUNT 4.61 10^6/uL (3.72-5.28); RED CELL DISTRIBUTION WIDTH 13.5 % (11.5-14.0); SEGMENTED NEUTROPHILS % (AUTO) 64.4 % (42-78); TOTAL CELLS COUNTED % (AUTO) 100 %; WHITE BLOOD COUNT 9.9 10^3/uL (4.0-10.5)
[2018-06-16 10:34] LABS: ANION GAP 9 (5-19); BLOOD UREA NITROGEN 11 mg/dL (7-20); CARBON DIOXIDE 31 mmol/L (22-30); CHLORIDE 102 mmol/L (98-107); CHOLESTEROL 179.97 mg/dL (0-200); GLUCOSE 111 mg/dL (75-110); TRIGLYCERIDES 67 mg/dL (<150)
[2018-06-16 10:44] LABS: DIRECT LDL 118 mg/dL (<100)
[2018-06-16 10:57] LABS: APPEARANCE,URINE CLOUDY; BILIRUBIN,URINE NEGATIVE (NEGATIVE); COLOR,URINE YELLOW; GLUCOSE, URINE NEGATIVE (NEGATIVE); KETONES,URINE NEGATIVE (NEGATIVE); LEUKOCYTE ESTERASE,URINE SMALL (NEGATIVE); NITRITE,URINE NEGATIVE (NEGATIVE); PROTEIN,URINE NEGATIVE (NEGATIVE); URINE SPECIFIC GRAVITY 1.021; UROBILINOGEN,URINE NEGATIVE mg/dL (<2.0)
== END ==
LOC: CCC 09:06
DX: R03.0 Elevated blood-pressure reading, without diagnosis of hypertension (principal)
CPT/HCPCS: 36415; 80048; 80061; 81001; 83036; 84443; 85025

== ENCOUNTER 2018-08-07 22:55 | Emergency (ER) | payer SELFPAY ==
--- NOTE | 2018-08-08 02:58 | ER Document Report ---
ED General - General Chief Complaint: Fever Stated Complaint: COUGH/POSSIBLE FEVER Time Seen by Provider: 08/08/18 02:29 Notes: Patient is a 47-year-old female that comes to the emergency department for chief complaint of fever, worsening cough, body aches, sore throat. She states she is also starting to hurt her back with bad back aches. She denies abdominal pain, dysuria. She denies difficulty breathing or chest pain. She has not had the influenza vaccine. She does have sick family members with similar symptoms. Past medical history of hypertension and hypothyroidism, medicated. TRAVEL OUTSIDE OF THE [place] IN LAST 30 DAYS: No - Related Data Allergies/Adverse Reactions: No Known Allergies Allergy (Verified 07/30/17 04:46) Past Medical History - General Information source: Patient - Social History Smoking Status: Never Smoker Frequency of alcohol use: None Drug Abuse: None Lives with: Family Family History: None - Past Medical History Cardiac Medical History: Reports: Hx Hypertension Endocrine Medical History: Reports: Hx Hypothyroidism Renal/ Medical History: Denies: Hx Peritoneal Dialysis Past Surgical History: Reports: Hx Section, Other - hernia repair Review of Systems - Review of Systems Constitutional: See HPI EENT: See HPI Cardiovascular: No symptoms reported Respiratory: See HPI Gastrointestinal: No symptoms reported Genitourinary: See HPI Female Genitourinary: No symptoms reported Musculoskeletal: See HPI Skin: No symptoms reported Hematologic/Lymphatic: No symptoms reported Neurological/Psychological: No symptoms reported Physical Exam - Vital signs Vitals: Temp Pulse Resp BP Pulse Ox 98.5 F 86 20 101/58 L 100 08/08/18 04:36 08/08/18 04:36 08/08/18 04:36 08/08/18 04:36 08/08/18 04:36 - Notes Notes: GENERAL: Mildly ill-appearing. Still conversational and alert. HEAD: Normocephalic, atraumatic. EYES: Pupils equal, round, and reactive to light. Extraocular movements intact. ENT: Oral mucosa moist, tongue midline. Oropharynx with minimal erythema. Airway patent. Nares patent, no nasal septal hematoma, TM's intact. NECK: Full range of motion. Supple. Trachea midline. LUNGS: a few scattered coarse breath sounds. No wheezing. No overt rhonchi or rales. Frequent congested cough. HEART: Regular rate and rhythm. No murmur ABDOMEN: Soft, non-tender. Non-distended. Bowel sounds present in all 4 quadrants. GENITOURINARY: Deferred EXTREMITIES: Moves all 4 extremities spontaneously. No edema, normal radial and dorsalis pedis pulses bilaterally. No cyanosis. BACK: no cervical, thoracic, lumbar midline tenderness. No saddle anesthesia, normal distal neurovascular exam. NEUROLOGICAL: Alert and oriented x3. Normal speech. [cranial nerves II through XII grossly intact]. PSYCH: Normal affect, normal mood. SKIN: Warm, dry, normal turgor. No rashes or lesions noted. Course - Re-evaluation Re-evalutation: Patient was congested cough with coughing spells. Reports cough is worsening. Unremarkable sinuses, no obvious postnasal drip. Strep is negative, influenza negative. Chest x-ray negative. Patient is not hypoxic, tachypneic, or distress. No fever here. Urinalysis unremarkable. Discussed options with patient. Patient feels that she is getting worse with her cough, she does have some coarse breath sounds. She states she has been running fevers at home. It is possible she has a viral illness, however it is also possible she is developing pneumonia. Because of her worsening productive cough after discussion of options decision was made to treat her for possible community-acquired pneumonia with azithromycin. Provided with cough relief because she cannot sleep because of persistent coughing. Discussed primary care follow-up and return precautions. They state understanding and agreement. - Vital Signs Vital signs: Temp Pulse Resp BP Pulse Ox 98.5 F 86 20 101/58 L 100 08/08/18 04:36 08/08/18 04:36 08/08/18 04:36 08/08/18 04:36 08/08/18 04:36 - Laboratory Laboratory results interpreted by me: 08/08/18 03:22 Urine Ascorbic Acid 20 H Discharge - Discharge Clinical Impression: Generalized body aches, Productive cough, Sore throat, Flank pain Fever Qualifiers: Fever type: unspecified Qualified Code(s): R50.9 - Fever, unspecified Disposition: HOME, SELF-CARE Additional Instructions: No tienes gripe ni estreptococo. Tu orina est limpia. Te estamos tratando por mary posible neumona. [place] el antibitico segn lo prescrito. [place] el jarabe por la noche para ayudar a toser y dormir. [place] muchos lquidos, tome ibuprofeno para el dolor corporal y descanse. [place] debera irse con el tiempo. Regrese si empeora (no puede respirar, sigue vomitando o si algo no est marcela). Prescriptions: Azithromycin [Zithromax 250 mg Tablet] 250 mg PO ASDIR PRN #4 tablet PRN Reason: Phenylephrine HCl/Cod/Prometh [Phenergan Vc-Codeine Syrup] 120 ml PO ASDIR PRN #1 syrup PRN Reason:
[2018-08-08 03:41] LABS: APPEARANCE,URINE SLIGHTLY-CLOUDY; BILIRUBIN,URINE NEGATIVE (NEGATIVE); COLOR,URINE STRAW; GLUCOSE, URINE NEGATIVE (NEGATIVE); KETONES,URINE NEGATIVE (NEGATIVE); LEUKOCYTE ESTERASE,URINE NEGATIVE (NEGATIVE); NITRITE,URINE NEGATIVE (NEGATIVE); PROTEIN,URINE NEGATIVE (NEGATIVE); URINE SPECIFIC GRAVITY 1.009; UROBILINOGEN,URINE NEGATIVE mg/dL (<2.0)
[2018-08-08 03:44] LABS: A TYPE INFLUENZA AG NEGATIVE (NEGATIVE); B INFLUENZA AG NEGATIVE (NEGATIVE)
--- NOTE | 2018-08-08 03:52 | RADIOLOGY REPORT (SQ) ---
EXAM DESCRIPTION: XR CHEST 2 VIEWS COMPLETED DATE/TME: 08/08/2018 02:54 CLINICAL HISTORY: 47 years, Female, fever, cough COMPARISON: 03/28/2017 chest x-ray NUMBER OF VIEWS: 2 TECHNIQUE: Frontal and lateral views of the chest LIMITATIONS: None. FINDINGS: Heart size is normal. Lungs are clear. No pneumothorax IMPRESSION: Negative chest copyright 2010 [facility] [employer]- All Rights Reserved
[2018-08-08] MEDS ORDERED: AZITHROMYCIN 250 MG TABLET PO ONE (04:21)
[2018-08-08 05:35] VITALS: BP 101/58
== END 2018-08-08 04:36 | disposition home or self-care (01) ==
LOC: ER 22:55
DX: R05 Cough (principal); R50.9 Fever, unspecified; R10.9 Unspecified abdominal pain; J02.9 Acute pharyngitis, unspecified; M54.9 Dorsalgia, unspecified; I10 Essential (primary) hypertension; E03.9 Hypothyroidism, unspecified; Z79.899 Other long term (current) drug therapy
CPT/HCPCS: 71046; 81001; 81025; 87070; 87077; 87804; 87880; 99283

== ENCOUNTER 2018-08-30 02:11 | Emergency (ER) | payer SELFPAY ==
[2018-08-30] MEDS ORDERED: PREDNISONE 20 MG TABLET PO ONE (02:31)
[2018-08-30] MEDS ORDERED: IPRATROPIUM/ALBUTEROL 0.5-2.5 MG/3 ML AMPUL NEB ONE (02:31)
[2018-08-30] MEDS ORDERED: LIDOCAINE 1% INJ-PF (10 MG/ML) 30 ML SDV NEB ONE (02:31)
[2018-08-30] MEDS ORDERED: BENZONATATE 100 MG CAPSULE PO ONE (02:31)
[2018-08-30] MEDS ORDERED: ALBUTEROL SULFATE HFA (90 MCG/PUFF) 8 GM MDI (1 MDI/ER DISP) IH ONE (03:18)
--- NOTE | 2018-08-30 03:35 | ER Document Report ---
Entered by CLIFF RENDON SCRIBE 08/30/18 0232 Acting as scribe for:FÁTIMA FLORES MD ED Respiratory Problem - General Chief Complaint: Nonproductive Cough Stated Complaint: COUGH Time Seen by Provider: 08/30/18 02:20 Mode of Arrival: Ambulatory Information source: Patient Notes: 47 year old Irish speaking female that presents to the emergency department today with complaints of a dry cough x3 days. Patient was discharged from this facility on 08/08/2018 for a productive cough and was sent home on a z-harpreet and cough syrup. Patient states that her cough got better with those medications but now has come back, increasing over the last x3 days. Patient denies any fevers. TRAVEL OUTSIDE OF THE [place] IN LAST 30 DAYS: No - Related Data Allergies/Adverse Reactions: No Known Allergies Allergy (Verified 08/30/18 02:12) Past Medical History - General Information source: Patient, [facility] Records - Social History Smoking Status: Never Smoker Cigarette use (# per day): No Frequency of alcohol use: None Drug Abuse: None Lives with: Family Family History: None - Past Medical History Cardiac Medical History: Reports: Hx Hypertension Endocrine Medical History: Reports: Hx Hypothyroidism Past Surgical History: Reports: Hx Section, Other - hernia repair Review of Systems - Review of Systems Constitutional: denies: Fever EENT: No symptoms reported Cardiovascular: No symptoms reported Respiratory: See HPI, Cough Gastrointestinal: No symptoms reported Genitourinary: No symptoms reported Female Genitourinary: No symptoms reported Musculoskeletal: No symptoms reported Skin: No symptoms reported Hematologic/Lymphatic: No symptoms reported Neurological/Psychological: No symptoms reported -: Yes All other systems reviewed and negative Physical Exam - Vital signs Vitals: Temp Pulse Resp BP Pulse Ox 98.5 F 108 H 22 H 119/104 H 100 08/30/18 02:12 08/30/18 02:12 08/30/18 02:12 08/30/18 02:12 08/30/18 02:12 - Notes Notes: Physical Exam: General: Alert, appears well. HEENT: Normocephalic. Atraumatic. PERRL. Extraocular movements intact. Oropharynx clear. Neck: Supple. Non-tender. Respiratory: No respiratory distress. Dry, harsh sounding breath sounds bilaterally. No rhonchi, very minimal wheezes. Cardiovascular: Regular rate and rhythm. Abdominal: Normal Inspection. Non-tender. No distension. Normal Bowel Sounds. Back: Non-tender. No deformity or step off. Extremities: Moves all four extremities. Upper extremities: Normal inspection. Normal ROM. Lower extremities: Normal inspection. No edema. Normal ROM. Neurological: Normal cognition. AAOx4. Normal speech. Psychological: Normal affect. Normal Mood. Skin: Warm. Dry. Normal color. Course - Re-evaluation Re-evalutation: 08/30/18 03:11 Patient does feel little better after breathing treatment. She still has the very dry harsh, honking type bronchitic cough with a very slight wheeze and some rhonchi noted. The diagnosis and treatment plan was explained through an wireless store manager. - Vital Signs Vital signs: Temp Pulse Resp BP Pulse Ox 98.5 F 108 H 22 H 119/104 H 100 08/30/18 02:12 08/30/18 02:12 08/30/18 02:12 08/30/18 02:12 08/30/18 02:12 Discharge - Discharge Clinical Impression: Bronchitis, Cough Condition: Stable Disposition: HOME, SELF-CARE Additional Instructions: Bronchitis You have acute bronchitis. This disease is an infection or inflammation of the air passageways in your lungs. Symptoms usually include cough, low grade fever, shortness of breath, and wheezing. The cough usually persists for a couple of weeks. Most cases of bronchitis get better without antibiotics. We prescribe antibiotics when we believe bacteria are damaging your airways, or if there's high risk the bronchitis will worsen into pneumonia. Increase your fluid intake. A cool mist humidifier may make your lungs more comfortable. An expectorant (cough medicine that loosens phlegm) can help. If you smoke, STOP!!! Recovery from bronchitis can be somewhat slow, but you should see improvement within a day or two. Repeated episodes of bronchitis may result in lung damage -- for example, chronic bronchitis, recurrent pneumonias, or emphysema. Call the doctor if you develop increasing fever, shortness of breath, chest pain, bloody sputum, or otherwise worsen. If you have not improved at all after several days, contact the physician. Take medications as prescribed. Start the prednisone on Friday morning. Drink plenty of fluids and get plenty of rest. Use the inhaler for wheezing if needed. Try Robitussin-DM to help control your cough. Follow-up with your primary care provider next week if not improving. RETURN TO THE EMERGENCY ROOM IF ANY NEW OR WORSENING SYMPTOMS. Prescriptions: Benzonatate [Tessalon Perles 100 mg Capsule] 100 mg PO ASDIR PRN #30 capsule PRN Reason: Prednisone [Deltasone 10 mg Tablet] 10 mg PO ASDIR PRN #21 tablet PRN Reason: Referrals: [facility] [Outside] - Follow up as needed Print Language: Irish Kimberly Attestation: 08/30/18 02:54 I personally performed the services described in the documentation, reviewed and edited the documentation which was dictated to the scribe in my presence, and it accurately records my words and actions. I personally performed the services described in the documentation, reviewed and edited the documentation which was dictated to the scribe in my presence, and it accurately records my words and actions.
[2018-08-30 04:00] VITALS: BP 124/74
== END 2018-08-30 03:35 | disposition home or self-care (01) ==
LOC: ER 02:11
DX: J40 Bronchitis, not specified as acute or chronic (principal); R05 Cough; R06.2 Wheezing; I10 Essential (primary) hypertension
CPT/HCPCS: 94640 ×2; 99283; J3490 ×2; J7512; J7620

== ENCOUNTER → 2018-11-05 | Outpatient (CLI) | payer OTHER ==
[~2018-11-05] MED LIST: AMINOPHYLLINE INJ/PF 250 MG/10 ML SDV IV ONE; REGADENOSON INJ 0.4 MG/5 ML DISP.SYRIN IV ONE
--- NOTE | 2018-11-05 13:02 | DRAGON STRESS TEST REPORT ---
INTRAVENOUS LEXISCAN CARDIOLITE STRESS TEST USING SINGLE PHOTON EMMISION COMPUTERIZED TOMOGRAPHIC. DATE OF PROCEDURE: November 05, 2018, INDICATION : Chest pain CARDIAC RISK FACTORS: Hypertension RESTING EKG: Sinus rhythm, no acute ST-T wave changes STRESS EKG: Minor ST segment depression noted inferior and lateral chest lead, possibly related to tachycardia and LVH but could well be ischemic. REASON FOR TERMINATION: Protocol. PROCEDURE REPORT: Baseline heart rate 87 beats per minute with blood pressure of 127/75. Patient had no significant complaints. Patient was bolused with Lexiscan 0.4 mg intravenously followed by saline bolus. Heart rate at 2 minutes post bolus 129 with a blood pressure of 149/70. 3 minutes post bolus heart rate 106 with blood pressure of 143/72. No significant EKG changes were noted. Patient had no significant complaints during the procedure or postprocedure. CONCLUSIONS: Normal EKG and hemodynamic response to IV LexiScan. NUCLEAR DATA: At rest the patient was given 14.50 millicuries of technetium 99 sestamibi injected intravenously. As per protocol rest gated SPECT images were obtained. On day of stress test, the patient was given intravenous LexiScan at a dose of 0.4 mg in 5 mL intravenously, followed by flush with normal saline. Subsequently the stress dose of 41.5 millicuries of technetium 99 sestamibi was injected intravenously. As per protocol stress gated images were obtained. NUCLEAR INTERPRETATION: Both raw and processed data were used for interpretation. Visual, qualitative, computer-generated quantitative data was used. There was good myocardial uptake of technetium compound. Motion artifact and soft tissue attenuations were noted. Increased visceral uptake was noted. Breast attenuation artifact was noted to be rather significant. Small area of mild transient perfusion defect consistent with probable mild ischemia noted in the mid anterior wall. There were no corresponding regional wall motion normalities on gated stress imaging. No definitive areas of fixed perfusion defect or scars noted. EKG gated imaging showed LV EF at 60 %, rest and stress gated EF similar visually. T. I D. ratio was 1.10. Lung heart ratio noted to be within normal limits 0.20. No significant extracardiac and abnormal radiotracer activities were noted. RV free wall uptake was noted to be WNL. IMPRESSION: Also refer to comments under nuclear interpretation. Also test results needs to be interpreted in the context of pretest probability. 1. Small area of mild transient perfusion defect noted in the mid anterior wall. There were no corresponding regional wall motion normalities on gated stress imaging. Most likely related to differences in breast attenuation artifact but cannot rule out an area of mild ischemia and therefore clinical correlation requested. 2. There is no definitive scintigraphic evidence of myocardial infarction/scar. 3. EKG gated imaging shows left ventricular ejection fraction of approx. 60 %. 4. Clinical correlation requested as worse disease and or balanced ischemia could be missed. In approximately 10% of the cases Lexiscan may not cause adequate vasodilatory stress. RECOMMENDATIONS: Aggressive risk factor modification and medical management. Further evaluation may be needed if continued symptoms or other high risk indicators are noted on clinical evaluation. Would recommend a stress echo if clinically indicated. Close cardiology follow-up is also recommended. Clinical correlation with echocardiogram derived ejection fraction. Inability to exercise by itself can lead to increased cardiovascular event risks. Consider cardiology consultation and or follow-up if clinically indicated. I am available for cardiology evaluation and consultation if requested by the dispute specialist, unless patient already has a air commodore. Dr. Fidencio Kruger. [facility] Board certified in cardiology and sleep medicine. Board certified in nuclear cardiology, adult echocardiography. VINAY
--- NOTE | 2018-11-05 20:33 | XCELERA REPORT ---
[address] [address] Transthoracic Echocardiogram Report Name: TUNA TREJO Age: 47 yrs Gender: Female : 1970 Patient Status: Preadmit Patient Location: RAD Study Date: 11/05/2018 10:08 AM Height: 61 in Weight: 194 lb BSA: 1.9 m2 Procedure: A two-dimensional transthoracic echocardiogram with color flow and Doppler was performed. The study was technically difficult with many images being suboptimal in quality. The study was technically limited with all images being suboptimal in quality. Reason For Study: Chest Pain / HTN History: Chest Pain / HTN. Ordering Physician: [facility], [place] Performed By: Brooke Gardiner Interpretation Summary The left ventricle is normal in size. Left ventricular systolic function is normal. LV EF is > than 65% Doppler measurements suggest impaired left ventricular relaxation, which is associated with grade I/IV or mild diastolic dysfunction The left ventricular wall motion is normal. No Clots.Not a study to assess for ASD,VSD,or PFO. The right atrium is normal. The left atrial size is normal. There is no evidence of mitral valve prolapse. There is no vegetation seen on the mitral valve. There is no mitral regurgitation noted. There is no aortic valvular vegetation. There is no aortic valve stenosis There is no LVOT obstruction. No aortic regurgitation is present. There is no tricuspid stenosis. There is a trace to mild amount of tricuspid regurgitation There is mild pulmonary hypertension by echo RVSP is 37 mm of Hg , with RA mean of 10. There is no pulmonic valvular stenosis. There is a trace amount of pulmonic regurgitation There is no pericardial effusion. MMode/2D Measurements & Calculations RVDd: 3.0 cm LVIDd: 4.8 cm FS: 40.9 % Ao root diam: 2.4 cm IVSd: 0.85 cm LVIDs: 2.8 cm EDV(Teich): 107.9 ml Ao root area: 4.4 cm2 LVPWd: 1.0 cm ESV(Teich): 30.7 ml EF(Teich): 71.6 % Doppler Measurements & Calculations MV E max mildred: MV dec slope: Ao V2 max: LV V1 max P.4 cm/sec 642.9 cm/sec2 184.3 cm/sec 5.9 mmHg MV A max mildred: MV dec time: 0.15 secAo max PG: LV V1 max: 97.2 cm/sec 13.6 mmHg 121.2 cm/sec MV E/A: 0.98 PA V2 max: TR max mildred: 123.0 cm/sec 260.9 cm/sec PA max P.1 mmHg TR max P.2 mmHg Left Ventricle The left ventricle is normal in size. Left ventricular systolic function is normal. LV EF is > than 65%. Doppler measurements suggest impaired left ventricular relaxation, which is associated with grade I/IV or mild diastolic dysfunction. The left ventricular wall motion is normal. No Clots.Not a study to assess for ASD,VSD,or PFO. Right Ventricle The right ventricle is grossly normal size. The right ventricle is not well visualized secondary to technical limitations. Atria The right atrium is normal. The left atrial size is normal. Mitral Valve There is no evidence of mitral valve prolapse. There is no vegetation seen on the mitral valve. There is no mitral valve stenosis. There is no mitral regurgitation noted. Aortic Valve There is no aortic valvular vegetation. There is no aortic valve stenosis. There is no LVOT obstruction. No aortic regurgitation is present. Tricuspid Valve There is no tricuspid stenosis. There is a trace to mild amount of tricuspid regurgitation. There is mild pulmonary hypertension by echo. RVSP is 37 mm of Hg , with RA mean of 10. Pulmonic Valve There is no pulmonic valvular stenosis. There is a trace amount of pulmonic regurgitation. Great Vessels The aortic root is normal size. Effusions There is no pericardial effusion. : [facility] > Karla Falcon
== END ==
LOC: RAD 07:21
DX: R07.89 Other chest pain (principal); I10 Essential (primary) hypertension
CPT/HCPCS: 93306; 93017; 78452; A9500; J2785; J0280; Q9969

== ENCOUNTER → 2019-04-30 | Outpatient (CLI) | payer OTHER ==
[2019-04-30 08:26] LABS: ABSOLUTE EOSINOPHILS # (AUTO) 0.2 10^3/uL (0.0-0.6); ABSOLUTE LYMPHOCYTES (AUTO) 2.9 10^3/uL (0.5-4.7); ABSOLUTE MONOCYTES (AUTO) 0.6 10^3/uL (0.1-1.4); ABSOLUTE NEUT (AUTO) 3.9 10^3/uL (1.7-8.2); BASOPHILS % (AUTO) 0.6 % (0-2); EOSINOPHILS % (AUTO) 2.9 % (0-6); HEMATOCRIT 40.5 % (36.0-47.0); HEMOGLOBIN 14.1 g/dL (12.0-15.5); MEAN CORPUSCULAR HEMOGLOBIN 29.3 pg (27.0-33.4); MEAN CORPUSCULAR HGB CONC 34.8 g/dL (32.0-36.0); MEAN CORPUSCULAR VOLUME 84 fl (80-97); PLATELET COUNT 227 10^3/uL (150-450); RED BLOOD COUNT 4.82 10^6/uL (3.72-5.28); RED CELL DISTRIBUTION WIDTH 13.7 % (11.5-14.0); SEGMENTED NEUTROPHILS % (AUTO) 50.5 % (42-78); TOTAL CELLS COUNTED % (AUTO) 100 %; WHITE BLOOD COUNT 7.8 10^3/uL (4.0-10.5)
[2019-04-30 08:51] LABS: ALBUMIN 4.4 g/dL (3.5-5.0); ALKALINE PHOSPHATASE 84 U/L (38-126); ANION GAP 8 (5-19); ASPARTATE AMINO TRANSFERASE 26 U/L (14-36); BILIRUBIN,DIRECT 0.1 mg/dL (0.0-0.4); BILIRUBIN,TOTAL 0.6 mg/dL (0.2-1.3); BLOOD UREA NITROGEN 16 mg/dL (7-20); CALCIUM 9.8 mg/dL (8.4-10.2); CARBON DIOXIDE 32 mmol/L (22-30); CHLORIDE 101 mmol/L (98-107); CHOLESTEROL 190.08 mg/dL (0-200); GLUCOSE 100 mg/dL (75-110); POTASSIUM 3.7 mmol/L (3.6-5.0); TOTAL PROTEIN 7.9 g/dL (6.3-8.2); TRIGLYCERIDES 98 mg/dL (<150)
[2019-04-30 09:04] LABS: DIRECT LDL 104 mg/dL (<100)
== END ==
LOC: OD 07:48
DX: E03.9 Hypothyroidism, unspecified (principal); I10 Essential (primary) hypertension
CPT/HCPCS: 36415; 80053; 80061; 84436; 84443; 85025

== ENCOUNTER 2020-07-21 21:19 | Emergency (ER) | payer SELFPAY ==
--- NOTE | 2020-07-21 21:39 | ER Document Report ---
ED Medical Screen (RME) - General Stated Complaint: HEAD PRESSURE, NOSE AND THROAT DISCOMFORT Time Seen by Provider: 07/21/20 21:30 Notes: Patient is a 49 year old [place] speaking female who presents to the emergency department with a headache that started 3 weeks ago. ARELIS evans, #[id number] used. Patient states the back of her head is hurting. She went to urgent care and had her thyroid labs checked, which were normal. She states that she was supposed to have a CT scan done, but has not had it done. She also states that she feels like her nose and throat are closing a little. States that she has some nausea and spinning. Denies any congestion in her sinuses. Denies contact with anyone who tested positive for COVID 19. Exam: Alert and oriented. I have greeted and performed a rapid initial assessment of this patient. A comprehensive ED assessment and evaluation of the patient, analysis of test results and completion of medical decision making process will be conducted by an additional ED providers. TRAVEL OUTSIDE OF THE [place] IN LAST 30 DAYS: No - Related Data Allergies/Adverse Reactions: No Known Allergies Allergy (Verified 08/30/18 02:12) Past Medical History - Past Medical History Cardiac Medical History: Reports: Hx Hypertension Endocrine Medical History: Reports: Hx Hypothyroidism Renal/ Medical History: Denies: Hx Peritoneal Dialysis Past Surgical History: Reports: Hx Section, Hx Herniorrhaphy, Other - hernia repair Physical Exam - Vital signs Vitals: Temp Pulse Resp BP Pulse Ox 98.9 F 82 14 141/70 H 100 07/21/20 21:20 07/21/20 21:20 07/21/20 21:20 07/21/20 21:20 07/21/20 21:20 Course - Vital Signs Vital signs: Temp Pulse Resp BP Pulse Ox 98.9 F 82 14 141/70 H 100 07/21/20 21:39 07/21/20 21:34 07/21/20 21:34 07/21/20 21:34 07/21/20 21:34
[2020-07-21 22:09] LABS: ABSOLUTE EOSINOPHILS # (AUTO) 0.2 10^3/uL (0.0-0.6); ABSOLUTE MONOCYTES (AUTO) 0.7 10^3/uL (0.1-1.4); ABSOLUTE NEUT (AUTO) 5.3 10^3/uL (1.7-8.2); BASOPHILS % (AUTO) 0.3 % (0-2); EOSINOPHILS % (AUTO) 1.7 % (0-6); HEMATOCRIT 37.3 % (36.0-47.0); HEMOGLOBIN 13.1 g/dL (12.0-15.5); LYMPHOCYTES % (AUTO) 39.1 % (13-45); MEAN CORPUSCULAR HEMOGLOBIN 29.1 pg (27.0-33.4); MEAN CORPUSCULAR HGB CONC 35.1 g/dL (32.0-36.0); MEAN CORPUSCULAR VOLUME 83 fl (80-97); MONOCYTES % (AUTO) 7.1 % (3-13); PLATELET COUNT 230 10^3/uL (150-450); RED BLOOD COUNT 4.49 10^6/uL (3.72-5.28); RED CELL DISTRIBUTION WIDTH 13.6 % (11.5-14.0); SEGMENTED NEUTROPHILS % (AUTO) 51.8 % (42-78); TOTAL CELLS COUNTED % (AUTO) 100 %; WHITE BLOOD COUNT 10.2 10^3/uL (4.0-10.5)
[2020-07-21 22:29] LABS: ALBUMIN 4.2 g/dL (3.5-5.0); ALKALINE PHOSPHATASE 89 U/L (38-126); ANION GAP 9 (5-19); ASPARTATE AMINO TRANSFERASE 31 U/L (14-36); BILIRUBIN,DIRECT 0.1 mg/dL (0.0-0.4); BILIRUBIN,TOTAL 0.4 mg/dL (0.2-1.3); BLOOD UREA NITROGEN 17 mg/dL (7-20); CALCIUM 9.4 mg/dL (8.4-10.2); CARBON DIOXIDE 29 mmol/L (22-30); CHLORIDE 97 mmol/L (98-107); GLUCOSE 108 mg/dL (75-110); POTASSIUM 3.3 mmol/L (3.6-5.0); TOTAL PROTEIN 7.9 g/dL (6.3-8.2)
[2020-07-21 22:36] LABS: APPEARANCE,URINE CLEAR; BILIRUBIN,URINE NEGATIVE (NEGATIVE); COLOR,URINE COLORLESS; GLUCOSE, URINE NEGATIVE (NEGATIVE); KETONES,URINE NEGATIVE (NEGATIVE); LEUKOCYTE ESTERASE,URINE NEGATIVE (NEGATIVE); NITRITE,URINE NEGATIVE (NEGATIVE); PROTEIN,URINE NEGATIVE (NEGATIVE); URINE SPECIFIC GRAVITY 1.004; UROBILINOGEN,URINE NEGATIVE mg/dL (<2.0)
--- NOTE | 2020-07-21 22:59 | RADIOLOGY REPORT (SQ) ---
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 COMPARISON: CT the head from 01/28/2020 TECHNIQUE: Multiple axial contiguous images were obtained through the head without intravenous contrast administered. This exam was performed according to our departmental dose-optimization program, which includes automated exposure control, adjustment of the mA and/or KV according to the patient's size and/or use of iterative reconstruction technique. FINDINGS: The ventricles are within normal limits for size. Both globes appear symmetric. The mastoid air cells appear clear. The visualized paranasal sinuses appear clear. The calvarium is intact. No extra-axial fluid collection is seen. The iraheta-white matter differentiation is within normal limits. No midline shift or mass effect is apparent. There are no findings to suggest acute intracranial hemorrhage. IMPRESSION: No acute intracranial hemorrhage is seen.
--- NOTE | 2020-07-22 00:36 | ER Document Report ---
ED Headache - General Chief Complaint: Headache >24 hrs old Stated Complaint: HEAD PRESSURE, NOSE AND THROAT DISCOMFORT Time Seen by Provider: 07/21/20 21:30 Primary Care Provider: BREANNA FISHER DO [ACTIVE STAFF] - Follow up as needed [facility] [Primary Care Provider] - Follow up as needed MILLER BANGURA MD [ACTIVE STAFF] - Follow up as needed Mode of Arrival: Ambulatory Information source: Patient Notes: 49-year-old female presented to ED for complaint of headaches. She states she had bad headaches when she was in her 20s but states she has not had any for a long time. She states now for the last 3 weeks she has had a headache intermittently. She states she went to the urgent care they tested her thyroid so she went to another doctor they said they were going do a CT scan but they did not do it. So because she was continuing to have the headache and feel like her nose and throat were plugged up she decided to come to the emergency room. Patient is alert oriented respirations regular nonlabored there is no signs or symptoms of any problems in her nose her throat and her head CT that was ordered before I saw her was negative. I did use occupational therapist aide [id number] conduct this interview and assessment. Constitutional: Negative for fever. HENT: Minimal nasal drainage no postnasal drip no signs or symptoms of swelling or redness to the throat Eyes: Negative for visual changes. Cardiovascular: Negative for chest pain. Respiratory: Negative for shortness of breath. Gastrointestinal: Negative for abdominal pain, vomiting or diarrhea. Genitourinary: Negative for dysuria. Musculoskeletal: Negative for back pain. Skin: Negative for rash. Neurological: Lanes of pressure to the back of the head no numbness or tingling 10 point ROS negative except as marked above and in HPI. VITAL SIGNS: Within normal limits. GENERAL: No acute distress, non-toxic appearance. HEAD: Normal with no signs of head trauma. EYES: PERRLA, EOMI, conjunctiva normal, no discharge. EARS: Hearing grossly intact. NOSE: No swelling or drainage in the nose THROAT: Postnasal drip NECK: Normal range of motion, no tenderness, supple, no lymphadenopathy, No adenopathy, no JVD. CHEST: Clear breath sounds bilaterally. No wheezes, rales, or rhonchi. CARDIAC: Regular rate and rhythm. S1 and S2, without murmurs, gallops, or rubs. VASCULAR: No Edema. Peripheral pulses normal and equal in all extremities. ABDOMEN: Normal and soft with no tenderness, no masses or pulsatile masses. GASTROINTESTINAL: Bowel sounds normal GENITOURINARY: Normal, No tenderness LYMPATHTIC: No lymphadenopathy noted. MUSCULOSKELETAL: Good range of motion of all major joints. Extremities without clubbing, cyanosis or edema. NEUROLOGICAL: Alert and oriented x 3. No focal sensory or strength deficits. Speech normal. Follows commands appropriately. PSYCHIATRIC: Normal Affect, judgement and mood. SKIN: Normal appearance with no rashes or lesions. TRAVEL OUTSIDE OF THE [place] IN LAST 30 DAYS: No - HPI Patient complains to provider of: Headache. No: Facial pain Patient reports: Other - History of frequent headaches for the last 3 weeks. She states she was having headaches as a teenager Onset: Other - 3 weeks Onset was: Gradual Timing: Better Quality of pain: Pressure Severity: Mild Pain Level: 1 Associated symptoms: None Similar symptoms previously: Yes Recently seen / treated by doctor: Yes - Related Data Allergies/Adverse Reactions: No Known Allergies Allergy (Verified 08/30/18 02:12) Home Medications: synthroid. amlodipine. hydroxizine. hctz Past Medical History - General Information source: Patient - Social History Smoking Status: Never Smoker Chew tobacco use (# tins/day): No Frequency of alcohol use: None Drug Abuse: None Lives with: Family Family History: Reviewed & Not Pertinent Patient has homicidal ideation: No - Past Medical History Cardiac Medical History: Reports: Hx Hypertension Pulmonary Medical History: Reports: None EENT Medical History: Reports: None Neurological Medical History: Reports: None Endocrine Medical History: Reports: Hx Hypothyroidism Renal/ Medical History: Reports: None Malignancy Medical History: Reports: None GI Medical History: Reports: None Musculoskeletal Medical History: Reports None Skin Medical History: Reports None Psychiatric Medical History: Reports: None Traumatic Medical History: Reports: None Infectious Medical History: Reports: None Past Surgical History: Reports: Hx Section, Hx Tubal Ligation, Other - hernia repair Physical Exam - Vital signs Vitals: Temp Pulse Resp BP Pulse Ox 98.9 F 82 14 141/70 H 100 07/21/20 21:20 07/21/20 21:20 07/21/20 21:20 07/21/20 21:20 01/22/21 21:20 Course - Re-evaluation Re-evalutation: 07/22/20 03:45 She was encouraged to eat bananas for her slightly low potassium. She states she has been told this in the past. She was instructed to follow-up with primary care and ENT. Patient verbalized understanding and agreement with treatment plan. I did give her a written report of labs and CAT scan. Patient was discharged home after she verbalized understanding and agreement with treatment plan through the occupational therapist aide. - Vital Signs Vital signs: Temp Pulse Resp BP Pulse Ox 98.0 F 82 16 124/72 99 07/22/20 00:48 07/21/20 21:34 07/22/20 00:48 07/22/20 00:48 07/22/20 00:48 - Laboratory Results Result Diagrams: 07/21/20 21:45 07/21/20 21:45 Laboratory Results Interpreted: 07/21/20 21:45 Sodium 134.5 L Potassium 3.3 L Chloride 97 L Critical Laboratory Results Reviewed: No Critical Results - Radiology Results Critical Radiology Results Reviewed: No Critical Results Discharge - Discharge Clinical Impression: Headache Qualifiers: Headache type: unspecified Headache chronicity pattern: unspecified pattern Intractability: not intractable Qualified Code(s): R51.9 - Headache, unspecified Condition: Stable Disposition: HOME, SELF-CARE Additional Instructions: HEADACHE: The physician does not feel that the headache you are experiencing has a serious underlying cause. Most headaches are due to emotional stress, with resultant muscle tension (tension headache). Occasionally, headaches are secondary to changes in the blood vessels of the scalp (vascular headache and migraine headache). Sometimes, a headache is the first symptom of another developing illness, such as a viral infection. You have no evidence of stroke, bleeding, meningitis, or other serious cause of your headache. The treatment of headaches varies with the severity and cause of the pain. Not all headaches need pain shots. In fact, there is evidence that using narcotics for headaches may make them worse in the long run. The physician will determine the therapy that's in your best interest. If you develop a fever, if the headache is different from any you've previously experienced, or if the headache progressively worsens, then call your physician at once or go to the emergency room. Acetaminophen Acetaminophen may be taken for pain relief or fever control. It's much safer than aspirin, offering a wider range of "safe" dosages. It is safe during . Some brand names are Tylenol, Panadol, Datril, Anacin 3, Tempra, and Liquiprin. Acetaminophen can be repeated every four hours. The following are maximum recommended dosages: WEIGHT Dose Drops Elixir Chewable(80mg) (LBS.) drprs=droppers tsp=teaspoon 6 40 mg .4 ml (1/2) 6-11 80 mg .8 ml (full) 1/2 tsp 1 tab 12-16 120 mg 1 1/2 drprs 3/4 tsp 1 1/2 tabs 17-23 160 mg 2 drprs 1 tsp 2 tabs 24-30 240 mg 3 drprs 1 1/2 tsp 3 tabs 30-35 320 mg 2 tsp 4 tabs 36-41 360 mg 2 1/4 tsp 4 1/2 tabs 42-47 400 mg 2 1/2 tsp 5 tabs 48-53 480 mg 3 tsp 6 tabs 54-59 520 mg 3 1/4 tsp 6 1/2 tabs 60-64 560 mg 3 1/2 tsp 7 tabs 65-70 600 mg 3 3/4 tsp 7 1/2 tabs 71-76 640 mg 4 tsp 8 tabs 77-82 720 mg 4 1/2 tsp 9 tabs 83-88 800 mg 5 tsp 10 tabs >89 pounds or adults 650 mg to 900 mg Acetaminophen can be repeated every four hours. Maximum daily dose not to exceed 4000 mg. These maximum recommended dosages are slightly higher than the dosages written on the product container, but these dosages are very safe and well below the toxic dosage for acetaminophen. Ibuprofen Ibuprofen is an excellent, safe drug for pain control. In addition, it has potent antiinflammatory effects which are beneficial, especially in the treatment of injuries, arthritis, or tendonitis. It's best to take ibuprofen with food. Persons with ulcer disease or allergy to aspirin should notify their physician of this before taking ibuprofen. Take the medication exactly as prescribed. Don't take additional doses unless instructed to do so by your doctor. If you develop wheezing, shortness of breath, hives, faintness, stomach pain, vomiting, or dark black stools, return for re-evaluation at once. As per your request I have given you the name and number of a ears nose and throat specialist as well as a shot man for your eyes. You also need to follow-up with your primary care at [facility]. Please monitor your blood pressure as we discussed and see if this makes a difference in your headaches. FOLLOW-UP CARE: If you have been referred to a physician for follow-up care, call the physicians office for an appointment as you were instructed or within the next two days. If you experience worsening or a significant change in your symptoms, notify the physician immediately or return to the Emergency Department at any time for re-evaluation. Forms: Elevated Blood Pressure Referrals: [facility] [Primary Care Provider] - Follow up as needed BREANNA FISHER DO [ACTIVE STAFF] - Follow up as needed MILLRE BANGURA MD [ACTIVE STAFF] - Follow up as needed
[2020-07-22 00:48] VITALS: BP 124/72
--- NOTE | 2020-07-22 08:52 | EKG REPORT ---
SEVERITY:- ABNORMAL ECG - SINUS RHYTHM NONSPECIFIC ST- CHANGES ANTERIOR LEADS, UNCHANGED FROM 01/28/20 : Confirmed by: Luis Philip MD 22-Jul-2020 08:51:53
== END 2020-07-22 01:04 | disposition home or self-care (01) ==
LOC: ER 21:19
DX: R51.9 Headache, unspecified (principal); R09.89 Other specified symptoms and signs involving the circulatory and respiratory systems; I10 Essential (primary) hypertension; E03.9 Hypothyroidism, unspecified; Z79.899 Other long term (current) drug therapy
CPT/HCPCS: 36415; 70450; 80053; 81001; 85025; 93005; 93010; 99285